=== PATIENT | male | born 1990 | race African-American/Black ===

== ENCOUNTER 2017-03-09 20:15 | Emergency (ER) | payer MEDICAID ==
[~2017-03-09] VITALS: Ht 177.8 cm; Wt 68.0 kg
[2017-03-09] MEDS ORDERED: ZOFRAN ODT4 MG ORAL (20:25)
[2017-03-09] MEDS ORDERED: PEPCID40 MG PO (20:25)
[2017-03-09] MEDS ORDERED: Lidocaine 2% Visc 15ml soln ORAL ONE (20:30)
[2017-03-09] MEDS ORDERED: Ondansetron ODT 8mg tab ORAL ONE (20:30)
[2017-03-09] MEDS ORDERED: Dicyclomine HCl 10mg/5ml oral soln ORAL ONE (20:30)
[2017-03-09] MEDS ORDERED: Mylanta II UD 30ml ORAL ONE (20:30)
[2017-03-09 20:36] VITALS: BP 138/100
[2017-03-09 20:44] VITALS: BP 138/100
--- NOTE | 2017-03-09 21:10 | Emergency Room Report ---
History of Present Illness General Chief Complaint: Abdominal Pain Source: Patient Present Illness HPI 26-year-old male complaining of epigastric abdominal pain. States that 5 days ago he ate something bad from a fast food restaurant, had episodes of nausea vomiting and diarrhea. The vomiting stopped however he does now of burning epigastric pain that radiates up to his chest. Has still been able to eat and drink, but only able to eat bread. No other complaints Allergies: Coded Allergies: No Known Allergies (Unverified , 03/09/17) Patient History Past Medical History: see triage record Past Surgical History: none Pertinent Family History: none Reviewed Nursing Documentation: PMH: Agreed, PSxH: Agreed Nursing Documentation-PMH Past Medical History: No History, Except For Hx Seizures: Yes Review of Systems All Other Systems: negative except mentioned in HPI Physical Exam Vital Signs Date Time Temp Pulse Resp B/P (MAP) Pulse Ox O2 Delivery O2 Flow Rate FiO2 03/09/17 20:10 98.2 88 18 138/100 100 Room Air Sp02 EP Interpretation: reviewed, normal General Appearance: normal inspection, well appearing, no apparent distress, alert, GCS 15, non-toxic Head: normocephalic, atraumatic Eyes: bilateral eye normal inspection, bilateral eye PERRL, bilateral eye EOMI ENT: normal ENT inspection, normal pharynx, normal voice, moist mucus membranes Neck: normal inspection, full range of motion, supple Respiratory: normal inspection, lungs clear, normal breath sounds, no respiratory distress, no retraction, no wheezing, speaking full sentences, chest symmetrical Cardiovascular #1: normal inspection, regular rate, rhythm, no edema, normal capillary refill Cardiovascular #2: 2+ radial (R), 2+ radial (L) Gastrointestinal: normal inspection, non tender, soft, non-distended, no guarding Genitourinary: no CVA tenderness Musculoskeletal: normal inspection, back normal, normal range of motion, non- tender Neurologic: normal inspection, alert, oriented x3, responsive, motor strength/ tone normal, sensory intact, normal gait, speech normal Psychiatric: normal inspection, judgement/insight normal, memory normal Skin: normal inspection, normal color, no rash, warm/dry, well hydrated, normal turgor Medical Decision Making Diagnostic Impression: Primary Impression: Epigastric pain ER Course 26-year-old male with epigastric abdominal pain Differential Diagnosis: Gastritis, gastroenteritis Abdomen is very soft nontender at this time, patient appears well-hydrated and nontoxic. Plan: Pepcid, GI cocktail, Zofran ER course: Patient has remained stable during ED stay. Pain improved. Repeat abdominal exam is nontender. Tolerating PO Disposition: Patient is to be discharged to home. Prescriptions given are Pepcid and Zofran Patient is instructed to follow up with their primary care doctor within 5 days. Strict return precautions discussed with patient such as fever, chills, worsening/severe abdominal pain, nausea, vomiting, black or bloody stools, which may indicate severe illness. Patient verbalizes understanding and agrees with plan. Please note that this Emergency Department Report was dictated using [employer] staff technology software, occasionally this can lead to erroneous entry secondary to interpretation by the dictation equipment Last Vital Signs Date Time Temp Pulse Resp B/P (MAP) Pulse Ox O2 Delivery O2 Flow Rate FiO2 03/09/17 20:36 98.2 88 18 138/100 100 Room Air Disposition: HOME, SELF-CARE Condition: Improved Scripts Ondansetron Odt* (ZOFRAN ODT*) 4 Mg Tab.rapdis 4 MG ORAL Q6H Y for Nausea & Vomiting, #15 TAB 0 Refills Prov: Dwaine Mendoza M.D. 03/09/17 Famotidine (PEPCID) 40 Mg Tablet 40 MG PO DAILY for 7 Days, #7 TAB 0 Refills Prov: Dwaine Mendoza M.D. 03/09/17 Patient Instructions: Gastritis, Adult, Abdominal Pain, Adult Dwaine Mendoza M.D. Mar 09, 2017 21:10
== END 2017-03-09 21:10 | disposition home or self-care (01) ==
LOC: EDBD 20:15 → EMR 21:09
DX: R10.13 Epigastric pain (principal)
CPT/HCPCS: 99284; Q0162